=== PATIENT | male | born 1955 | race Hispanic/Latino ===

== ENCOUNTER → 2019-03-31 | Outpatient (CLI) | payer OTHER | END | disposition home or self-care (01) | LOC: SHCH 13:53 | PROVIDERS: ATTEND Internal Medicine Cardiovascular Disease | DX: I10 Essential (primary) hypertension (principal) | CPT/HCPCS: 93306 ==

== ENCOUNTER → 2019-04-06 | Outpatient (CLI) | payer OTHER ==
[~2019-04-06] VITALS: Ht 175.3 cm; Wt 113.4 kg
[~2019-04-06] MED LIST: REGADENOSON 0.4 MG/5 ML PF SYG IVP SCH
== END | disposition home or self-care (01) ==
LOC: SHCH 07:57
PROVIDERS: ATTEND Internal Medicine Cardiovascular Disease
DX: R07.9 Chest pain, unspecified (principal)
CPT/HCPCS: 78452; 93017; 96374; A9500 ×2; J2785

== ENCOUNTER → 2019-05-04 | Outpatient (CLI) | payer OTHER | END | disposition home or self-care (01) | LOC: RAH 14:14 | PROVIDERS: ATTEND Internal Medicine Cardiovascular Disease | DX: Z13.6 Encounter for screening for cardiovascular disorders (principal) | CPT/HCPCS: 75571 ==

== ENCOUNTER 2019-06-02 05:49 | Day surgery (SDC) | payer OTHER ==
[2019-05-31 13:00] VITALS: BP 126/70
[2019-05-31 14:08] LABS: BASOPHILS % (AUTO) 0.6 % (0.0-5.0); LYMPHOCYTES % (AUTO) 15.5 % (21.0-51.0); MEAN CORPUSCULAR HEMOGLOBIN 32.4 pg (27.0-33.0); MEAN CORPUSCULAR VOLUME 95.4 fL (79-99); MONOCYTES % (AUTO) 5.6 % (3.0-13.0); NEUTROPHILS % (AUTO) 76.3 % (40.0-77.0); PLATELET COUNT (AUTO) 202 K/uL (130-400); RED BLOOD CELL COUNT(AUTO) 4.92 MIL/uL (4.50-6.20); RED CELL DISTRIBUTION WIDTH 13.7 % (11.0-15.5); WHITE BLOOD COUNT (AUTO) 7.6 K/uL (4.8-10.8)
[2019-05-31 14:18] LABS: CREATININE 1.1 mg/dL (0.5-1.5); POTASSIUM 4.4 mmol/L (3.5-5.1)
[2019-05-31 14:19] LABS: INR 0.95 (0.85-1.15)
[2019-05-31 14:21] LABS: APPEARANCE,URINE Clear (CLEAR); BILIRUBIN,URINE Negative (NEGATIVE); COLOR,URINE Yellow (YELLOW); GLUCOSE, URINE (UA) 250 mg/dL (NEGATIVE); KETONES,URINE Negative (NEGATIVE); LEUKOCYTE ESTERASE ,URINE Small (NEGATIVE); NITRATE,URINE Negative (NEGATIVE); OCCULT BLOOD,URINE Negative (NEGATIVE); PROTEIN,URINE Negative (NEGATIVE)
[2019-05-31 14:28] LABS: BACTERIA,URINE Rare /HPF (None Seen); MUCUS,URINE Rare LPF (None Seen); RBC,URINE 0-1 /HPF (0-1); SQUAMOUS EPITHELIAL CELL,UR Few /HPF (0-2)
--- NOTE | 2019-06-01 13:25 | NUR ---
report ua results of leukest small and wbc 2-5, no new orders.
[~2019-06-02] VITALS: Ht 175.3 cm; Wt 111.2 kg
[2019-06-02] VITALS (18 sets, daily range): BP systolic 106–173; BP diastolic 65–91
[~2019-06-02 05:49] MED LIST changes: +AEC81 PO; +AMLO1CAP15 PO; +ATOR40TA69 PO; +CLON1TAB12 PO; +IBUP-14 PO; +ISOS10TA8 PO; +MELA3TAB PO; +METO-408 PO; +MULT-1335 PO; +NITR0.4T50 SL; -REGADENOSON 0.4 MG/5 ML PF SYG IVP SCH; +SODIUM CHLORIDE 0.9% 500ML 500 ML IV SCH; +ZOLP10TA6 PO
[2019-06-02] MEDS ORDERED: SODIUM CHLORIDE 0.9% 1000ML 1,000 ML IV ONE (06:18)
[2019-06-02] MEDS ORDERED: ISOS30TA6 PO (06:56)
--- NOTE | 2019-06-02 09:25 | NUR ---
procedure pt taken to labor delivery specialist via bed for procedure. family at bedside
[2019-06-02] MEDS ORDERED: IOHEXOL 350 MG/ML 100ML INFUS..BTL IV ONE (09:37)
[2019-06-02] MEDS ORDERED: LIDOCAINE HCL 2% 20ML ONE (09:37)
[2019-06-02] MEDS ORDERED: SODIUM CHLORIDE 0.9% 1000ML 1,000 ML IV SCH (10:22)
[2019-06-02] MEDS ORDERED: ATROPINE SULFATE 0.1 MG/ML 10 ML SYG IVP ONE (10:27)
[2019-06-02] MEDS ORDERED: ACETAMINOPHEN-CODEINE 300/30MG TAB PO PRN ×2 (10:30)
--- NOTE | 2019-06-02 10:35 | NUR ---
post received pt back from metallurgical lab technician. s/p left heart cath, 6 sinhala sheath to right groin, see post cath assessment. pt awake and alert in bed, no distress noted. plan of care discuss with patient/ family
--- NOTE | 2019-06-02 17:00 | NUR ---
dc dc instructions given to pt's sister , instructed to f/u with dr. vazquez, to continue home meds. right groin d stat dressing dry and intact, site with no bleeding or hematoma noted. vs stable.
--- NOTE | 2019-06-02 17:30 | NUR ---
DISCHARGE PATIENT DISCHARGED HOME WITH SISTER. NO BLEEDING, NO HEMATOMA TO SITE, PULSES ARE PRESENT BILATERAL FEET. PATIENT AND SISTER VERBALIZED UNDERSTANDING OF INSTRUCTIONS.
== END 2019-06-02 17:30 | disposition home or self-care (01) ==
LOC: DAH 05:49
PROVIDERS: ATTEND Internal Medicine Cardiovascular Disease
DX: I25.118 Atherosclerotic heart disease of native coronary artery with other forms of angina pectoris (principal); I10 Essential (primary) hypertension; E78.5 Hyperlipidemia, unspecified; F17.210 Nicotine dependence, cigarettes, uncomplicated; Z88.1 Allergy status to other antibiotic agents; Z79.82 Long term (current) use of aspirin; Z79.899 Other long term (current) drug therapy; Z79.01 Long term (current) use of anticoagulants; Z98.890 Other specified postprocedural states; Z79.1 Long term (current) use of non-steroidal anti-inflammatories (NSAID); Z82.49 Family history of ischemic heart disease and other diseases of the circulatory system
CPT/HCPCS: 36415; 71045; 80048; 81001; 85025; 85610; 85730; 93005; 93458; A4606; C1894; J1644 ×2; J3490; J7030; Q9965; Q9967; J0461

== ENCOUNTER 2019-06-02 23:07 | Observation (INO) | payer OTHER ==
[~2019-06-02] VITALS: Ht 175.3 cm; Wt 111.6 kg
[~2019-06-02 23:07] MED LIST changes: +ISOS30TA6 PO; -SODIUM CHLORIDE 0.9% 500ML 500 ML IV SCH
[2019-06-03 00:18] LABS: BASOPHILS % (AUTO) 0.8 % (0.0-5.0); EOSINOPHILS % (AUTO) 1.1 % (0.0-8.0); HEMATOCRIT 45.3 % (42-54); LYMPHOCYTES % (AUTO) 11.7 % (21.0-51.0); MEAN CORPUSCULAR HEMOGLOBIN 32.5 pg (27.0-33.0); MEAN CORPUSCULAR HGB CONC 34.5 g/dL (32.0-36.0); MEAN CORPUSCULAR VOLUME 94.3 fL (79-99); MONOCYTES % (AUTO) 5.7 % (3.0-13.0); NEUTROPHILS % (AUTO) 80.7 % (40.0-77.0); PLATELET COUNT (AUTO) 194 K/uL (130-400); RED BLOOD CELL COUNT(AUTO) 4.81 MIL/uL (4.50-6.20); RED CELL DISTRIBUTION WIDTH 13.2 % (11.0-15.5); WHITE BLOOD COUNT (AUTO) 8.7 K/uL (4.8-10.8)
[2019-06-03 00:27] LABS: CREATININE 1.2 mg/dL (0.5-1.5); POTASSIUM 4.2 mmol/L (3.5-5.1)
[2019-06-03] MEDS ORDERED: ACETAMINOPHEN 325 MG TAB PO PRN (01:45)
[2019-06-03 05:43] LABS: BASOPHILS % (AUTO) 0.7 % (0.0-5.0); EOSINOPHILS % (AUTO) 1.8 % (0.0-8.0); MEAN CORPUSCULAR HEMOGLOBIN 32.1 pg (27.0-33.0); MEAN CORPUSCULAR HGB CONC 34.1 g/dL (32.0-36.0); MEAN CORPUSCULAR VOLUME 94.1 fL (79-99); MONOCYTES % (AUTO) 6.3 % (3.0-13.0); NEUTROPHILS % (AUTO) 70.2 % (40.0-77.0); NUCLEATED RED BLOOD CELLS 0.1 % (0.0-0.19); PLATELET COUNT (AUTO) 186 K/uL (130-400); RED BLOOD CELL COUNT(AUTO) 4.57 MIL/uL (4.50-6.20); RED CELL DISTRIBUTION WIDTH 13.2 % (11.0-15.5); WHITE BLOOD COUNT (AUTO) 8.5 K/uL (4.8-10.8)
[2019-06-03 05:51] LABS: CREATININE 1.2 mg/dL (0.5-1.5)
[2019-06-03 05:55] LABS: ALBUMIN 3.4 g/dL (3.5-5.0); BILIRUBIN,TOTAL 1.2 mg/dL (0.2-1.0); MAGNESIUM 1.8 mg/dL (1.80-2.40); PHOSPHORUS 3.8 mg/dL (2.5-4.9); TOTAL PROTEIN, SERUM 6.1 g/dL (6.0-8.3)
[2019-06-03] MEDS: MORPHINE SULFATE 2 MG/ML 1ML SYG IVP PRN ×3 (08:42→21:57)
--- NOTE | 2019-06-03 08:50 | NUR ---
PATIENT HAD HEART CATH YESTERDAY AND HAS BRUISING AND PAIN STARTED 06/02/19 EVENING Addendum: 06/03/19 at 1253 by ANTONIO TRAN RN RN Amended: Links added.
[2019-06-03 08:51] VITALS: BP 139/73
[2019-06-03 11:03] VITALS: BP 108/50
[2019-06-03] MEDS ORDERED: IBUPROFEN 200 MG TAB PO PRN (15:15)
[2019-06-03] MEDS ORDERED: NITROGLYCERIN 0.4 MG SL TAB SL PRN (15:15)
[2019-06-03 16:19] VITALS: BP 154/75
--- NOTE | 2019-06-03 16:20 | NUR ---
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
[2019-06-03 19:48] VITALS: BP 157/88
[2019-06-03] MEDS: MELATONIN 3 MG PO SCH (21:00)
[2019-06-03] MEDS: METOPROLOL TARTRATE 25 MG TAB PO SCH (21:53)
[2019-06-03] MEDS: CLONAZEPAM 1 MG TABLET PO SCH (21:53)
[2019-06-03] MEDS: AMLODIPINE-BENAZEPRIL 5-10 MG PO SCH (21:53)
[2019-06-03] MEDS: ZOLPIDEM TARTRATE 5 MG TAB PO SCH (21:53)
[2019-06-03] MEDS: ATORVASTATIN CALCIUM 40 MG TABLET PO SCH (21:53)
[2019-06-04] VITALS (13 sets, daily range): BP systolic 109–154; BP diastolic 64–82
[2019-06-04 07:10] LABS: POTASSIUM 4.1 mmol/L (3.5-5.1)
[2019-06-04 07:14] LABS: HEMATOCRIT 43.6 % (42-54); MEAN CORPUSCULAR HGB CONC 33.8 g/dL (32.0-36.0); MEAN CORPUSCULAR VOLUME 94.6 fL (79-99); PLATELET COUNT (AUTO) 174 K/uL (130-400); RED BLOOD CELL COUNT(AUTO) 4.61 MIL/uL (4.50-6.20); RED CELL DISTRIBUTION WIDTH 13.3 % (11.0-15.5); WHITE BLOOD COUNT (AUTO) 7.8 K/uL (4.8-10.8)
[2019-06-04] MEDS: ISOSORBIDE MONO 30MG TAB SR PO SCH (08:00)
[2019-06-04] MEDS: METOPROLOL TARTRATE 25 MG TAB PO SCH ×2 (09:00→22:28)
[2019-06-04] MEDS: MULTIVITAMIN WITH MINERALS TABLET PO SCH (09:00)
[2019-06-04] MEDS: ASPIRIN 81 MG EC TAB PO SCH (09:00)
[2019-06-04] MEDS ORDERED: THROMBIN-JMI 5000 UNIT/VIAL TP ONE (13:34)
[2019-06-04] MEDS: NYSTATIN 15 GM POWDER TP SCH (13:36)
[2019-06-04] MEDS ORDERED: FENTANYL CITRATE PF 50 MCG/1 ML 2ML VIAL ONE (14:05)
--- NOTE | 2019-06-04 14:57 | NUR ---
RT GROIN PSEUDOANEURYSM REPAIR WITH THROMBIN INJECTION PROCEDURE PERFORMED BY DR Jose M SOUSA. PUNCTURE SITE RT GROIN AND PATIENT TOLERATED PROCEDURE WELL. THROMBIN INJECTION OF 600 UNITS GIVEN AT 1430. END OF PROCEDURE AT 1440. INJECTION NEEDLE REMOVED AND NO BLEEDING NOTED. REPORT GIVEN TO Zay EVANS RN AND PATIENT TRANSPORTED TO [facility] AT 1500 VIA BED. AAO X3 WITH NO C/O PAIN.
--- NOTE | 2019-06-04 17:12 | NUR ---
CM NOTE SPOKE TO DR JACKELYN HENRY THIS PT, STILL IN OBS Addendum: 06/04/19 at 1722 by LORETA HARDY RN CM Amended: Links added.
[2019-06-04] MEDS: MELATONIN 3 MG PO SCH (21:00)
[2019-06-04] MEDS: CLONAZEPAM 1 MG TABLET PO SCH (22:28)
[2019-06-04] MEDS: ATORVASTATIN CALCIUM 40 MG TABLET PO SCH (22:28)
[2019-06-04] MEDS: ZOLPIDEM TARTRATE 5 MG TAB PO SCH (22:28)
[2019-06-04] MEDS: AMLODIPINE-BENAZEPRIL 5-10 MG PO SCH (22:28)
[2019-06-05 03:35] VITALS: BP 118/59
[2019-06-05 08:00] VITALS: BP 130/70
[2019-06-05] MEDS: MULTIVITAMIN WITH MINERALS TABLET PO SCH (09:54)
[2019-06-05] MEDS: METOPROLOL TARTRATE 25 MG TAB PO SCH (09:54)
[2019-06-05] MEDS: ASPIRIN 81 MG EC TAB PO SCH (09:54)
[2019-06-05] MEDS: ISOSORBIDE MONO 30MG TAB SR PO SCH (09:54)
[2019-06-05 12:00] VITALS: BP 94/56
--- NOTE | 2019-06-05 15:45 | NUR ---
DR.BIELFIED SANJIV'S NURSE PAGED, ASKED FOR CLEARANCE SHE STATED THEY DID NOT SEE THE PT BC WHEN THEY ROUNDED PT WAS IN IR IN THE PROCEDURE , SO NO ORDEERS
--- NOTE | 2019-06-05 15:48 | NUR ---
JOIE SLOAN, MADE AWARE OF [facility]'S RESONSES SHE STATED , WE STILL CLEARANCE FROM THEIR PART AND THEY NEED TO SEE PT , TODAY OR TOMORROW
--- NOTE | 2019-06-05 15:50 | NUR ---
CONVEYED JOIE'S PA MESSAGE TO [facility], ALONG WITH US RESULT FROM THIS MORNING SHE STATED "SHIT,.. WELL, WE ARE NOT GOING TO SEE THIS PATIENT, THER IS NO PSEUDOANEURYSM ANYMORE, HE CAN BE CLEARED TO GO HOME" I ASKED IF OK TO PLACED AN ORDER STATED PT WAS CLERED TO GO UNDER BIELFIEDL SHE STATED "YES " "PT CAN BE D/C " JOIE MADE AWARE, STATED "OK THEN PATIENT CAN BE D/C HOME" CHARGE NURSE CINTHIA KOROMA
--- NOTE | 2019-06-05 18:15 | NUR ---
DISCHARGE DISCHARGE TEACHING DONE WITH PATIENT AND SISTERS USING TEACHBACK METHOD, VERBALIZED UNDERSTANDING. NO NOTED SOB OR DISTRESS. NO NEW MEDICATIONS. PT AWARE OF NEED TO SET UP APPOINTMENT WITH DR. FITZPATRICK AND PCP. IV REMOVED, CATH TIP INTACT. TELEPAK REMOVED AND RETURNED. PENDING TO BE TRANSFERRED OUT VIA PRIVATE VEHICLE.
== END 2019-06-05 18:22 | disposition home or self-care (01) ==
LOC: EDH 23:07 → EDHIP 06-03 01:15 → 4BH 06-03 08:19
PROVIDERS: ADMIT Internal Medicine Critical Care Medicine; ATTEND Internal Medicine Critical Care Medicine
DX: I72.8 Aneurysm of other specified arteries (principal); E11.9 Type 2 diabetes mellitus without complications; E66.9 Obesity, unspecified; E78.5 Hyperlipidemia, unspecified; I10 Essential (primary) hypertension; I25.10 Atherosclerotic heart disease of native coronary artery without angina pectoris; R22.41 Localized swelling, mass and lump, right lower limb; F17.200 Nicotine dependence, unspecified, uncomplicated; S30.1XXA Contusion of abdominal wall, initial encounter; Z85.820 Personal history of malignant melanoma of skin; Z90.89 Acquired absence of other organs; X58.XXXA Exposure to other specified factors, initial encounter; Y93.89 Activity, other specified; Y92.89 Other specified places as the place of occurrence of the external cause; Y99.8 Other external cause status; Z88.8 Allergy status to other drugs, medicaments and biological substances; Z79.899 Other long term (current) drug therapy; Z82.49 Family history of ischemic heart disease and other diseases of the circulatory system; Z79.82 Long term (current) use of aspirin
CPT/HCPCS: 36002; 36415 ×2; 74176; 76882 ×2; 76942; 80048; 80053; 83735; 84100; 85025 ×2; 85027; 96374; 96376; 99284; A4215; G0378 ×65; J3010; J3490; 99152; 99153

== ENCOUNTER → 2022-02-07 | Outpatient (CLI) | payer OTHER ==
[~2022-02-07] MED LIST changes: -AMLO1CAP15 PO; +AMLO1CAP88 PO; -ISOS10TA8 PO; -ISOS30TA6 PO; +ISOS30TA92 PO; -MELA3TAB PO; +MELA3TAB41 PO
== END | disposition home or self-care (01) ==
LOC: RAH 09:35
PROVIDERS: ATTEND Internal Medicine Gastroenterology
DX: R13.12 Dysphagia, oropharyngeal phase (principal); R63.30 Feeding difficulties, unspecified
CPT/HCPCS: 74230; 92611

== ENCOUNTER → 2023-03-28 | Outpatient (CLI) | payer OTHER ==
[2023-03-28 15:17] LABS: BASOPHILS % (AUTO) 0.5 % (0.0-5.0); EOSINOPHILS % (AUTO) 2.5 % (0.0-8.0); LYMPHOCYTES % (AUTO) 13.6 % (21.0-51.0); MEAN CORPUSCULAR HEMOGLOBIN 30.8 pg (27.0-33.0); MEAN CORPUSCULAR HGB CONC 32.3 g/dL (32.0-36.0); MEAN CORPUSCULAR VOLUME 95.5 fL (79-99); MONOCYTES % (AUTO) 5.2 % (3.0-13.0); NEUTROPHILS % (AUTO) 77.9 % (40.0-77.0); PLATELET COUNT (AUTO) 257 K/uL (130-400); RED BLOOD CELL COUNT(AUTO) 4.19 MIL/uL (4.50-6.20); RED CELL DISTRIBUTION WIDTH 13.1 % (11.0-15.5); WHITE BLOOD COUNT (AUTO) 7.7 K/uL (4.8-10.8)
== END | disposition home or self-care (01) ==
LOC: LAB 13:50
PROVIDERS: ATTEND Physician Assistant
DX: I10 Essential (primary) hypertension (principal); I25.119 Atherosclerotic heart disease of native coronary artery with unspecified angina pectoris
CPT/HCPCS: 36415; 85025

== ENCOUNTER → 2023-07-23 | Outpatient (CLI) | payer OTHER ==
[2023-07-23 22:47] VITALS: PULSE 68; RESP 14
[2023-07-23 23:31] VITALS: PULSE 76; RESP 18
[2023-07-24] VITALS (12 sets, daily range): PULSE 51–69; RESP 18–20
== END | disposition home or self-care (01) ==
LOC: SLP 20:14
PROVIDERS: ATTEND Internal Medicine Cardiovascular Disease
DX: G47.33 Obstructive sleep apnea (adult) (pediatric) (principal)
CPT/HCPCS: 95810

== ENCOUNTER → 2023-07-28 | Outpatient (CLI) | payer OTHER ==
[2023-07-28] VITALS (7 sets, daily range): PULSE 55–82; RESP 10–25
[2023-07-29] VITALS (16 sets, daily range): PULSE 50–66; RESP 11–24
== END | disposition home or self-care (01) ==
LOC: SLP 20:34
PROVIDERS: ATTEND Internal Medicine Cardiovascular Disease
DX: G47.33 Obstructive sleep apnea (adult) (pediatric) (principal)
CPT/HCPCS: 95811

== ENCOUNTER → 2024-12-23 | Outpatient (CLI) | payer OTHER ==
--- NOTE | 2024-12-23 14:46 | HMCSR ---
APPROVED REPORT Height: 5 ft 9in Weight: 241 lbs TEST INDICATIONS Chest Pain The imaging protocol used to acquire images was Rest Tc-99m/stress Tc-99m 1 day Consent: The procedure was explained and understood by the patient. Informerd consent was witnessed Silvano Mcgowan RN First, low dose rest was performed then high dose stress. RESTING DATA: The resting ekg shows: NSR Rest SPECT myocardial perfusion imaging was performed in supine position 57 minutes following the int ravenous injection of 10.8 mCi of Tc-99 Sestamibi. Time of rest injection: 08:16: Date: 12/23/2024 Time of rest imagin:13: Date: 12/23/2024 PHARMACOLOGIC STRESS: Pharmacologic stress test was performed by injecting regadenoson 0.4 mg IV push followed by the intra venous injection of 32.5 mCi of Tc-99 Sestamibi. Time of stress injection: 09:38: Date: 12/23/2024 Time of stress imagin:43: Date: 12/23/2024 Heart Rate at time of stress injection: 75 bpm. Gated Stress SPECT was performed 65 minutes after stress injection. The images were gated to evaluate regional wall motion and calculate left ventricular ejection fracti on. STRESS DETAILS Reason for Termination: Infusion complete Stress Symptoms: Dyspnea Max HR Achieved: 96 bpm % of APMHR Achieved: 64 Max Blood Pressure: 150/81 mmHg Stress ECG: NSR Study quality was good. Lung uptake was Normal. Artifact: No artifact IMPRESSION Normal pharmacologic nuclear stress test. Conclusion Normal perfusion. LVEF 53%
[2024-12-23] MEDS: REGADENOSON 0.4 MG/5 ML PF SYG IVP ONE (15:32)
== END | disposition home or self-care (01) ==
LOC: SHCH 07:40
PROVIDERS: ATTEND Internal Medicine Cardiovascular Disease
DX: R07.9 Chest pain, unspecified (principal); R06.00 Dyspnea, unspecified
CPT/HCPCS: 78452; 93017; J2785; A9500 ×2

== ENCOUNTER 2025-01-04 15:23 | Inpatient (IN) | payer OTHER ==
[~2025-01-04] VITALS: Ht 167.6 cm; Wt 104.3 kg
[2025-01-04 16:02] LABS: BASOPHILS # (AUTO) 0.05 K/uL (0.00-0.20); EOSINOPHILS # (AUTO) 0.18 K/uL (0.00-0.70); EOSINOPHILS % (AUTO) 3.5 % (0.0-8.0); HEMATOCRIT 41.2 % (42-54); IMMATURE GRANULOCYTE ABSOLUTE 0.02 K/uL (0-1); LYMPHOCYTES # (AUTO) 1.2 K/uL (1.0-4.8); LYMPHOCYTES % (AUTO) 22.5 % (21.0-51.0); MEAN CORPUSCULAR HEMOGLOBIN 31.1 pg (27.0-33.0); MEAN CORPUSCULAR HGB CONC 33.3 g/dL (32.0-36.0); MEAN CORPUSCULAR VOLUME 93.4 fL (79-99); MONOCYTES # (AUTO) 0.3 K/uL (0.1-1.0); NEUTROPHILS # (AUTO) 3.5 K/uL (1.8-7.7); NEUTROPHILS % (AUTO) 66.6 % (40.0-77.0); PLATELET COUNT (AUTO) 229 K/uL (130-400); RED BLOOD CELL COUNT(AUTO) 4.41 MIL/uL (4.50-6.20); RED CELL DISTRIBUTION WIDTH 12.3 % (11.0-15.5); WHITE BLOOD COUNT (AUTO) 5.2 K/uL (4.8-10.8)
[2025-01-04 16:16] LABS: CREATININE 1.7 mg/dL (0.5-1.3); POTASSIUM 4.2 mmol/L (3.5-5.1)
[2025-01-04 16:22] LABS: B-TYPE NATRIURETIC PEPTIDE 43 pg/mL (0-100)
--- NOTE | 2025-01-04 18:16 | ERN ---
ED Note History of Present Illness Stated Complaint: CP Chief Complaint: Chest Pain Time Seen by MD: 15:27 Dictation: 69-year-old male presents to the ED for evaluation of chest pain onset one day ago. Patient denies any fever, cough, abdominal pain or shortness of breath at this time. Patient states his chest pain radiates to his left arm and also stated he had stents placed by Dr. Brooks a year ago and is currently taking baby aspirin. Allergies: Coded Allergies: ceftriaxone (Unverified Allergy, Unknown, 04/05/19) Home Meds Reported Medications Isosorbide Mononitrate (Isosorbide Mononitrate ER) 30 Mg Tab.er.24h, 15 MG PO DAILY AT 1600, TAB 06/02/19 Ibuprofen (Advil) 200 Mg Tablet, 400 MG PO DAILY PRN for PAIN LEVEL 6 TO 10, TAB 05/31/19 Multivit-Min/Folic/Vit K/Lycop (Men's 50 Plus Multivitamin Tab) 1 Each Tablet, 1 EACH PO DAILY, TAB 05/31/19 Melatonin (Melatonin) 3 Mg Tablet, 3 MG PO HS, TAB 05/31/19 Aspirin (ASPIRIN 81 MG ECTAB) 81 Mg Ectab, 81 MG PO DAILY, TAB.EC 05/31/19 Amlodipine Besylate/Benazepril (Lotrel 5-10 mg) 1 Each Capsule, 1 EACH PO HS, CAP 05/31/19 Metoprolol Succinate (Metoprolol Succinate) 25 Mg Tab.er.24h, 25 MG PO DAILY, TAB 05/31/19 Nitroglycerin (Nitroglycerin) 0.4 Mg Tab.subl, 0.4 MG SL AD PRN for CHEST PAIN, TAB.SL 05/31/19 Zolpidem Tartrate (Zolpidem Tartrate) 10 Mg Tablet, 10 MG PO HS, TAB 05/31/19 Clonazepam (Clonazepam) 1 Mg Tablet, 1 MG PO HS, TAB 05/31/19 Atorvastatin Calcium (LIPITOR) 40 Mg Tablet, 40 MG PO HS, TAB 05/31/19 Past Medical History Past Medical History: Cancer, Hypertension Surgical History: Appendectomy, Other Surgical History Other: STENTS Review of System Dictation Constitutional: Negative for fever,chills, and weight loss Eyes: Negative for injury, pain,redness, and discharge ENT: Negative for injury,pain or swelling Cardiovascular: Positive for chest pain negative for palpitations, and edema Respiratory: Negative for shortness of breath, cough, and wheezing, Abdomen/GI: Negative for abdominal pain, nausea, vomiting, diarrhea, and constipation Back: Negative for injury and pain : Negative for injury, bleeding and discharge MS/Extremity: Negative for injury and deformity Skin: Negative for rash, and discoloration Neuro: Negative for headache, weakness, numbness, tingling, and seizure Psych: Negative for suicide ideation, homicidal ideation, and hallucinations Initial Vital Sign VS Vital Signs Date Time Temp Pulse Resp B/P (MAP) Pulse Ox O2 Delivery O2 Flow Rate FiO2 01/04/25 15:25 98.4 67 20 147/69 98 Room Air 0 Physical Exam Dictation General: awake, alert, NAD Head/Face: Normocephalic, atraumatic Eyes: PERRL, EOMI, vision at baseline ENT: oral cavity clear, TMs clear, no signs of infection Neck: Trachea midline, supple, no nuchal rigidity Cardiovascular: RRR, normal S1/S2, No MRGs, no JVD Respiratory: CTAB, no respiratory distress, No rales or wheezes Abdomen: Soft, non-tender, non-distended, normal bowel sounds, no guarding or rebound. Skin: Warm, dry, normal turgor, no rash MS/Extremity: Pulses equal, no cyanosis, neurovascular intact, FROM Neuro: COAx4, GCS 15, strength 5/5, CN 2-12 intact, normal cerebellar exam, normal gait, Psych: Normal behavior, mood, and affect normal Results (Laboratory/Radiology) Laboratory/Radiology Laboratory Tests Test 01/04/25 15:50 01/04/25 16:07 White Blood Count 5.2 K/uL (4.8-10.8) Red Blood Count 4.41 MIL/uL (4.50-6.20) L Hemoglobin 13.7 g/dL (14.0-18.0) L Hematocrit 41.2 % (42-54) L Mean Corpuscular Volume 93.4 fL (79-99) Mean Corpuscular Hemoglobin 31.1 pg (27.0-33.0) Mean Corpuscular Hemoglobin Concent 33.3 g/dL (32.0-36.0) Red Cell Distribution Width 12.3 % (11.0-15.5) Platelet Count 229 K/uL (130-400) Mean Platelet Volume 9.3 fL (7.5-10.5) Immature Granulocyte % (Auto) 0.4 % (0-1) Neutrophils (%) (Auto) 66.6 % (40.0-77.0) Lymphocytes (%) (Auto) 22.5 % (21.0-51.0) Monocytes (%) (Auto) 6.0 % (3.0-13.0) Eosinophils (%) (Auto) 3.5 % (0.0-8.0) Basophils (%) (Auto) 1.0 % (0.0-5.0) Neutrophils # (Auto) 3.5 K/uL (1.8-7.7) Lymphocytes # (Auto) 1.2 K/uL (1.0-4.8) Monocytes # (Auto) 0.3 K/uL (0.1-1.0) Eosinophils # (Auto) 0.18 K/uL (0.00-0.70) Basophils # (Auto) 0.05 K/uL (0.00-0.20) Absolute Immature Granulocyte (auto 0.02 K/uL (0-1) Nucleated Red Blood Cells 0.0 % (0.0-0.19) Sodium Level 137 mmol/L (136-145) Potassium Level 4.2 mmol/L (3.5-5.1) Chloride Level 104 mmol/L (101-111) Carbon Dioxide Level 32 mmol/L (21-32) Blood Urea Nitrogen 23 mg/dL (7-18) H Creatinine 1.7 mg/dL (0.5-1.3) H Glomerular Filtration Rate Calc 43 mL/min (>90) Random Glucose 129 mg/dL (70-105) H Total Calcium 8.7 mg/dL (8.5-10.1) Total Creatine Kinase 41 U/L (21-232) Troponin I High Sensitivity 9.9 ng/L (4-75) B-Type Natriuretic Peptide 43 pg/mL (0-100) Troponin I < 0.05 ng/mL (0.00-0.05) Labs Reviewed?: Yes EKG Comment: EKG 01/04/2025 time 3:30 p.m. ventricular rate 62, IL 188, QRS D 95, QT 404 sinus rhythm, low voltage precordial leads. No STEMI ED Course ED Course Orders Procedure Category Date Status Time Vital Signs Per CPOE 01/04/25 Transmitted Routine 15:24 B-Type Natriuretic LAB 01/04/25 Complete Peptide 15:24 Chest 1vw RAD 01/04/25 Taken 15:24 12 Lead Ekg Tracing- EKG 01/04/25 Logged Technical 15:24 Oxygen By Nc/Pulse Ox CPOE 01/04/25 Transmitted 15:24 Maintain Iv CPOE 01/04/25 Transmitted 15:24 Iv Insertion CPOE 01/04/25 Transmitted 15:24 Cardiac Monitoring CPOE 01/04/25 Transmitted 15:24 Pulse Oximetry With CPOE 01/04/25 Transmitted Vs And Prn 15:24 Cbc With Differential LAB 01/04/25 Complete 15:24 Activity: Br W/Brp CPOE 01/04/25 Transmitted With Assist 15:24 Urinalysis Profile LAB 01/04/25 Logged 15:24 Troponin Poc Order LAB 01/04/25 Complete Only 15:24 Bedside Troponin-I LAB.ER 01/04/25 In Process (Poc) 15:24 Basic Metabolic Panel LAB 01/04/25 Complete 15:24 Cardiac Panel LAB 01/04/25 Complete 15:24 Vital Signs Date Time Temp Pulse Resp B/P (MAP) Pulse Ox O2 Delivery O2 Flow Rate FiO2 01/04/25 15:25 98.4 67 20 147/69 98 Room Air 0 HEART Score Response (Comments) Value History: Moderate suspicion (+1) 1 EKG: Normal 0 Age: > 65yrs (+2) 2 Risk Factors: 1-2 risk factors (+1) 1 Initial Troponin: Normal limit (0) 0 HEART Score Risk: Mod Risk for MACE (4-6) Total 4 Medical Decision Making MDM MDM: Differential diagnosis: Chest pain, unstable angina 1846-Hospitalist consult, accepts patient for admission Rationale: Tests considered and ordered secondary to shared decision making include: labs, ECG and radiology Risk of complication and/or morbidity or mortality of patient management: None Medications-Per medication reconciliation Need for hospitalization: Patient does meet criteria for hospitalization. Need for emergency major/minor surgery: No There are no social concerns with this patient. I independently interpreted the test that were performed, results were reviewed by me and considered findings on radiology if ordered. Medical management and examination interpretation discussions were had by me with other qualified healthcare professionals as indicated for the patient's care. DX & DISP Disposition: Inpatient Decision to Admit Date: Jan 04, 2025 Decision to Admit Time: 18:47 Departure Impression: Primary Impression: Unstable angina Condition: Stable Referrals: JANI ALMARAZ (PCP) CHAYA JUNG MD Jan 04, 2025 18:16
--- NOTE | 2025-01-04 19:05 | HP ---
History of Present Illness Reason for Visit: cp History of Present Illness Mr. House is a 69-year-old male that was seen and examined today on 01/05/2025. Patient is a good historian of personal health Patient states he came to the emergency department with a chief complaint of chest pain. Onset was two days ago. Location is to left pectoral area. Duration is on and off. Episodes last about 1 hour. Patient reports three episodes over the last two days. Character is described as pressure. Pain radiates to left shoulder. Symptoms are aggravated with eating. There was no alleviating factors. Patient denies any associated shortness of breath. Patient states he went to go see his PCP but somebody walked out into the lobby and told him he needs to go to the emergency department for evaluation because he stated he was having chest pain. Today in the emergency department vital signs within normal limits, CBC unremarkable, BUN 23, creatinine 1.7, GFR 43, troponin unremarkable, no urinalysis has been collected and sent to lab. Chest x-ray is pending radiology report. Emergency room physician recommended that patient be admitted with a diagnosis of chest pain. Past Medical History Patient History: Alzheimer's disease FATHER Carcinomas FATHER Cardiovascular disease BROTHER Hypertension MOTHER, , Age: 60 years and older, Cause: Coronary heart disease FATHER ADDITIONAL PAST MEDICAL HISTORY: [CAD, hypertension, hyperlipidemia, kidney CA] SOCIAL HISTORY: [Patient smokes four cigarettes daily. Patient denies alcohol use. Patient denies drug use. Patient lives alone. Patient has good access to health care through his insurance. 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 Dyspnea, Edema, Lt Headedness, Other Gastrointestinal: No: Nausea, Vomiting, Abdominal Pain, Diarrhea, Constipation, Melena, Hematochezia, Other Genitourinary: No Dysuria, No Frequency, No Incontinence, No Hematuria, No Retention, No Other Musculoskeletal: shoulder pain; No: other, neck pain, arm pain, back pain, hand pain, leg pain, foot pain Skin: No Urticaria, No Rash, No Other Neurological: No: Weakness, Numbness, Incoordination, Change in speech, Confusion, Seizures, Other Allergies: Coded Allergies: ceftriaxone (Unverified Allergy, Unknown, 04/05/19) Scheduled Amlodipine Besylate/Benazepril (Lotrel 5-10 mg), 1 EACH PO HS, (Reported) Ascorbic Acid (Vitamin C), 1 TAB PO DAILY, (Reported) Aspirin (Aspirin 81 Mg Ectab), 81 MG PO DAILY, (Reported) Aspirin (Aspirin), 1 TAB PO DAILY, (Reported) Atorvastatin Calcium (Lipitor), 40 MG PO HS, (Reported) Cholecalciferol (Vitamin D3) (Vitamin D3), 1 CAP PO DAILY, (Reported) Clonazepam (Clonazepam), 1 MG PO HS, (Reported) Clonazepam (Clonazepam), 1 TAB PO DAILY, (Reported) Clopidogrel Bisulfate (Clopidogrel), 1 TAB PO DAILY, (Reported) Colchicine (Colchicine), 1 TAB PO BID, (Reported) Ezetimibe (Ezetimibe), 1 TAB PO DAILY, (Reported) Fenofibrate Nanocrystallized (Fenofibrate), 1 TAB PO DAILY, (Reported) Furosemide (Furosemide), 1 TAB PO BID, (Reported) Isosorbide Mononitrate (Isosorbide Mononitrate ER), 15 MG PO DAILY AT 1600, (Reported) Melatonin (Melatonin), 3 MG PO HS, (Reported) Metoprolol Succinate (Metoprolol Succinate), 25 MG PO DAILY, (Reported) Metoprolol Succinate (Metoprolol Succinate), 1 TAB PO DAILY, (Reported) Multivit-Min/Folic/Vit K/Lycop (Men's 50 Plus Multivitamin Tab), 1 EACH PO DAILY, (Reported) Nifedipine (Nifedipine ER), 1 TAB PO DAILY, (Reported) Oseltamivir Phosphate (Oseltamivir Phosphate), 1 CAP PO BID, (Reported) Tamsulosin HCl (Flomax), 1 CAP PO DAILY, (Reported) Trazodone HCl (Trazodone HCl), 1 TAB PO HS, (Reported) Zolpidem Tartrate (Zolpidem Tartrate), 10 MG PO HS, (Reported) Scheduled PRN Ibuprofen (Advil), 400 MG PO DAILY PRN for PAIN LEVEL 6 TO 10, (Reported) Nitroglycerin (Nitroglycerin), 0.4 MG SL AD PRN for CHEST PAIN, (Reported) Exam Vital Signs Vital Signs Date Time Temp Pulse Resp B/P (MAP) Pulse Ox O2 Delivery O2 Flow Rate FiO2 01/04/25 15:25 98.4 67 20 147/69 98 Room Air 0 General Appearance: Alert, Oriented X3, Cooperative HEENT: Atraumatic, EOMI Respiratory: Clear to auscultation, Normal air movement, NL respiratory effort Cardiovascular: Regular rate, Regular rhythm, Normal S1, Normal S2 Abdominal: Normal bowel sounds, Soft, No tenderness Extremities: No edema Skin: No significant lesion Neuro: Normal gait, Normal speech, Strength at 5/5 X4 ext, Sensation intact, Cranial nerves 3-12 NL Psych/Mental Status: Mental status NL, Mood NL, Thoughts/Content NL Assessment/Plan ASSESSMENT: [ Chest pain, POA Acute kidney injury, POA CAD Hypertension Hyperlipidemia History of kidney CA] PLAN: [ Admit patient to medical floor as inpatient status. Place patient on telemetry monitoring. Administer aspirin 162 mg by mouth times 1 dose Continue aspirin 81 mg by mouth once daily Nitropaste 0.5 inches anterior chest wall every 8 hours Trend troponin every 6 hours x 3 sets Supplemental oxygen to maintain O2 saturation greater than 92% Consult cardiology if any elevation in troponin or troponin uptrending Calculate FENA Check urine sodium, creatinine, osmolality Avoid nephrotoxic agents when possible Renally dose all medications when possible Consider consulting Nephrology service if any worsening renal function or evidence of ATN. Monitor patient's labs. Weight patient daily. Monitor intake and output. Consider resuming home medications once they are reconciled For now, Hydralazine 10 mg IV every 4 hours for systolic blood pressure greater than 160 mmHg GI prophylaxis, Protonix DVT prophylaxis, heparin ADVANCED CARE PLANNING 1. Which of the following were discussed? Hospice Care - Yes Therapeutic options - Yes Advance Directives - Yes- patient states that he does not have any advance directives in place at this time, however his friend Carina Cee Osborne can make decisions for him if he becomes unable. Other discussions - patient wishes to remain a full code at this time 2. Discussed with who? Patient 3. Voluntary nature of this service was explained to the patient? Yes 4. Amount of time spent - ___ 16 minutes ____ 5. Reviewed by Physician? (if this service was performed by NPP) Yes This document was generated in part using voice recognition software, occasional wrong word or sound alike substitutions may have occurred due to the inherent limitations of voice recognition software. Read the chart carefully and recognize using context, where the substitutions have occurred. Although every effort was made to edit the content, chute tender and typing errors may occur ATTESTATION BY PHYSICIAN I have seen and examined the patient. I reviewed the documentation, medical decision making, and treatment plan as noted by the mid-level provider above. I agree with the findings and plan of care. LUISA WILSON [facility] Jan 04, 2025 19:05
[2025-01-04] MEDS ORDERED: hydrALAZine 20MG/ML VIAL IV PRN (20:00)
[2025-01-04] MEDS ORDERED: ondanSETRON 4MG INJ IV PRN (20:00)
[2025-01-04] MEDS: NITROGLYCERIN 1GM OINT 1 INCH/1GM TD SCH (21:17)
[2025-01-04] MEDS: ASPIRIN 81MG CHEW TAB PO ONE (21:17)
[2025-01-04] MEDS: HEParin 5,000 UNIT VIAL SQ SCH (21:17)
[2025-01-04] MEDS: morPHINE 2 MG SYG IVP PRN (23:37)
[2025-01-05] MEDS ORDERED: NIFE-39 PO (00:06)
[2025-01-05] MEDS ORDERED: EZET10TA48 PO (00:06)
[2025-01-05] MEDS ORDERED: CLOP75TA32 PO (00:06)
[2025-01-05] MEDS ORDERED: TRAZ-185 PO (00:06)
[2025-01-05] MEDS ORDERED: ASCO100031 PO (00:06)
[2025-01-05] MEDS ORDERED: FURO20TA4 PO (00:06)
[2025-01-05] MEDS ORDERED: CLON1TAB23 PO (00:06)
[2025-01-05] MEDS ORDERED: ASPI-1197 PO (00:06)
[2025-01-05] MEDS ORDERED: TAMS-1 PO (00:06)
[2025-01-05] MEDS ORDERED: METO-391 PO (00:06)
[2025-01-05] MEDS ORDERED: CHOL2000 PO (00:06)
[2025-01-05] MEDS ORDERED: OSEL75CA17 PO (00:06)
[2025-01-05] MEDS ORDERED: COLC0.6T73 PO (00:06)
[2025-01-05] MEDS ORDERED: FENO145T26 PO (00:06)
[2025-01-05 00:48] LABS: APPEARANCE,URINE CLEAR (CLEAR); BILIRUBIN,URINE NEGATIVE (NEGATIVE); COLOR,URINE LIGHT-YELLOW (YELLOW); GLUCOSE, URINE (UA) NEGATIVE (NEGATIVE); KETONES,URINE NEGATIVE (NEGATIVE); LEUKOCYTE ESTERASE ,URINE NEGATIVE Leu/uL (NEGATIVE); NITRATE,URINE NEGATIVE (NEGATIVE); OCCULT BLOOD,URINE NEGATIVE (NEGATIVE); PH,URINE 6.5 (5.0-8.0); PROTEIN,URINE NEGATIVE (NEGATIVE); UROBILINOGEN,URINE 0.2 mg/dL (0.2-1.0)
[2025-01-05 00:53] LABS: ADD UA MICROSCOPIC NO
[2025-01-05 01:29] LABS: CREATININE,URINE RANDOM 114.15 mg/dL (30-135); SODIUM,URINE RANDOM 123 mmol/l (40-220)
[2025-01-05 06:54] LABS: BASOPHILS # (AUTO) 0.04 K/uL (0.00-0.20); BASOPHILS % (AUTO) 0.7 % (0.0-5.0); EOSINOPHILS # (AUTO) 0.27 K/uL (0.00-0.70); EOSINOPHILS % (AUTO) 4.7 % (0.0-8.0); HEMATOCRIT 43.5 % (42-54); IMMATURE GRANULOCYTE ABSOLUTE 0.02 K/uL (0-1); LYMPHOCYTES % (AUTO) 34.5 % (21.0-51.0); MEAN CORPUSCULAR HEMOGLOBIN 30.7 pg (27.0-33.0); MEAN CORPUSCULAR HGB CONC 32.9 g/dL (32.0-36.0); MEAN CORPUSCULAR VOLUME 93.3 fL (79-99); MONOCYTES # (AUTO) 0.3 K/uL (0.1-1.0); NEUTROPHILS # (AUTO) 3.2 K/uL (1.8-7.7); NEUTROPHILS % (AUTO) 54.8 % (40.0-77.0); PLATELET COUNT (AUTO) 248 K/uL (130-400); RED BLOOD CELL COUNT(AUTO) 4.66 MIL/uL (4.50-6.20); RED CELL DISTRIBUTION WIDTH 12.2 % (11.0-15.5); WHITE BLOOD COUNT (AUTO) 5.8 K/uL (4.8-10.8)
--- NOTE | 2025-01-05 07:00 | NUR ---
REPORT RECEIVCD FROM ERICH BARBOSA
--- NOTE | 2025-01-05 07:01 | EKG ---
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
[2025-01-05 07:05] LABS: CREATININE 1.5 mg/dL (0.5-1.3); PHOSPHORUS 3.1 mg/dL (2.5-4.9); POTASSIUM 4.3 mmol/L (3.5-5.1)
--- NOTE | 2025-01-05 08:00 | NUR ---
ASSESSMENT: PT FOUND IN SITTING POSITION EATING HIS AM MEAL TRAY. NO ACUTE DISTRESS NOTED. PT DID VERBALIZE THAT HE STILL HAD SOME DISCOMFORT TO HIS L CHEST WALL-ESPECIALLY TO PALPATION. CARDIO/PULMONARY: PT STATES HE HAS SOME CHEST WALL DISCOMFORT-ESPECIALLY TO PALPATION TO L SIDE CHEST. PT HAS SINUS RHYTHM ON COILER. 1+PITTING EDEMA TO LLE AND TRACE EDEMA TO RLE. 2+ PULSES TO BILATERAL RADIAL/DORSALIS PEDAL SITES. S1S2 AUSCULTATED APICALLY. LSCTA TO ALL LUNG COLON. NO CYANOSIS NOTED TO NAIL BEDS. CAP REFILL LESS THAN 3 SECONDS. NO USE OF ACCESSORY MUSCLES. SATS >94% ROOM AIR. NEURO: PT IS NEUROLOGICALLY INTACT. PT FOLLOWS COMMANDS BOTH SIMPLE AND COMPLEX. GCS OF 15. DENIES BLURRED OR DOUBLE VISION MUSCULOSKELETAL/INTEGUMENTARY: PT IS ABLE TO MOVE ALL EXTREMITIES W/NO COMPLAINTS AT THIS TIME EXCEPT TO THE LEFT CHEST WALL W/PALPATION. NO SKIN LESIONS NOTED NOR VERBALIZED BY PT. GI/: PT ABLE TO VOID VIA URINAL WHICH IS AT BEDSIDE AND HAS CLEAR YELLOW URINE IN IT CURRENTYL. NO BLADDER DISTENTION NOTED. +BS X 4 QUADRANTS. SOFT ABD TO PALPATION. PT DENIES N/V/D. PT HAS NOT HAD A STOOL FOR THE LAST 2 DAYS.
--- NOTE | 2025-01-05 08:27 | HMCIMG ---
CHEST 1VW REASON: CHEST PAIN COMPARISON: 05/31/2019 FINDINGS: Single view of the chest was obtained. Lungs are clear. Heart size is normal. There is no pulmonary vascular congestion. Elevated right hemidiaphragm is again noted. Mediastinum and bony thorax appear unremarkable. IMPRESSION: 1. No acute finding, no change.
--- NOTE | 2025-01-05 08:30 | NUR ---
PT ATE 100% OF HIS AM TRAY
--- NOTE | 2025-01-05 09:30 | NUR ---
PT ASSISTED OOB TO BR TO HAVE A STOOL. DENIES ANY ISSUES/CONCERNS
[2025-01-05] MEDS: PANTOPrazole 40 MG TAB DR PO SCH (10:15)
[2025-01-05] MEDS: ASPIRIN 81 MG EC TAB PO SCH (10:15)
[2025-01-05] MEDS: acetaMINOPHEN 325 MG TAB PO PRN (10:16)
--- NOTE | 2025-01-05 12:15 | NUR ---
PT PROVIDED HIS NOON MEAL TRAY
--- NOTE | 2025-01-05 12:19 | NUR ---
DCP: HOME met with pt who lives alone in his home. Pt states he is active and drives, able to complete his ADLS on his own. Uses no DME or in home care services. PCP is Maryam Saravia and uses [facility] for rx. Discussed MPOA, pt states he is not close to his family, brother Leland House [phone]. Pt wants to have friend Kahlil Osborne [phone], but needs to speak to him first and get address. Pt to recontact if he decides to complete. Pt will dc home Addendum: 01/05/25 at 1225 by TOD ARCHIBALD Amended: Links added.
--- NOTE | 2025-01-05 12:45 | NUR ---
HOSPITALIST GROUP IN TO SEE THE PT.
--- NOTE | 2025-01-05 13:13 | DS ---
Discharge Summary Hospital Course Summary: Mr. Sofia is a 69-year-old male who came to the emergency department with a chief complaint of intermittent chest pain around the left pectoral area , radiating to shoulder since two days, . Character is described as pressure Symptoms are aggravated with eating. There was no alleviating factors. Patient denies any associated shortness of breath. Patient states he went to go see his PCP but somebody walked out into the lobby and told him he needs to go to the emergency department for evaluation because he stated he was having chest pain. In the emergency department vital signs within normal limits, CBC unremarkable, BUN 23, creatinine 1.7, GFR 43, troponin unremarkable, urinalysis was unremarkable. No acute findings on chest x-ray. He has a history of multiple cardiac stents done by Dr. Brooks few years ago. EKG showed sinus rhythm. He had a history of renal mass and left nephrectomy 5 years ago. 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 [facility] normal perfusion. LVEF 53%. He follows up with Dr. Antonio Brooks and has an appointment in next week. Currently he has no chest pain, denies any radiation or aggravating factors, denies shortness of breath or dizziness or palpitations or diaphoresis. We will discharge him today to follow up with PCP and Dr. Brooks. Will prescribe him nicotine patch for smoking cessation and pantoprazole for GERD. Procedure(s): PATIENT: [place] SOFIA MR#: [id number] : 1955 SEX: M AGE: 69 LOCATION: [facility] ORDER 1525 STATUS: ADM IN REPORT#: [id number] SERVICE 1524 REASON: CHEST PAIN ORDERING PHYSICIAN: CHAYA JUNG MD PROCEDURE: CXR1VW - CHEST 1VW CHEST 1VW REASON: CHEST PAIN COMPARISON: 05/31/2019 FINDINGS: Single view of the chest was obtained. Lungs are clear. Heart size is normal. There is no pulmonary vascular congestion. Elevated right hemidiaphragm is again noted. Mediastinum and bony thorax appear unremarkable. IMPRESSION: 1. No acute finding, no change. 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 FOLLOW UP APPOINTMENT(S) : f/u with PCP in one 2-3 days PROCEDURES: none IMAGING (S) : report attached to summary MICROBIOLOGY : none ACTIVITY : ad jose eduardo HOME MEDICATIONS : Continued Home Medications: Active Scripts Pantoprazole Sodium (Pantoprazole Sodium) 40 Mg Tablet.dr, 1 TAB PO DAILY for 30 Days, #30 TAB 0 Refills Prov:JEANETTE HELTON MD 01/05/25 Acetaminophen (Tylenol Extra Strength) 500 Mg Tablet, 1 TAB PO TIDP PRN for pain or fever for 3 Days, #10 TAB 0 Refills Prov:JEANETTE HELTON MD 01/05/25 Nicotine (Nicotine Patch) 14 Mg/24 Hour Patch.td24, 1 PATCH TP DAILY for smoking cessation for 28 Days, #28 PATCH 0 Refills Prov:JEANETTE HELTON MD 01/05/25 Reported Medications Colchicine (Colchicine) 0.6 Mg Tablet, 1 TAB PO BID for gout pain for 30 Days, #60 TAB 0 Refills 01/05/25 Aspirin (Aspirin) 81 Mg Tab.chew, 1 TAB PO DAILY for 30 Days, #30 TAB 0 Refills 01/05/25 Furosemide (Furosemide) 20 Mg Tablet, 1 TAB PO BID for 30 Days, #30 TAB 0 Refills 01/05/25 Clopidogrel Bisulfate (Clopidogrel) 75 Mg Tablet, 1 TAB PO DAILY for 30 Days, #30 TAB 0 Refills 01/05/25 Metoprolol Succinate (Metoprolol Succinate) 50 Mg Tab.er.24h, 1 TAB PO DAILY for 30 Days, #30 TAB 0 Refills 01/05/25 Ezetimibe (Ezetimibe) 10 Mg Tablet, 1 TAB PO DAILY for 30 Days, #30 TAB 0 Refills 01/05/25 Trazodone HCl (Trazodone HCl) 50 Mg Tablet, 1 TAB PO HS for 30 Days, #30 TAB 0 Refills 01/05/25 Ascorbic Acid (Vitamin C) 1,000 Mg Tablet, 1 TAB PO DAILY for 15 Days, #15 TAB 0 Refills DIRECTED 01/05/25 Tamsulosin HCl (Flomax) 0.4 Mg Cap.er.24h, 1 CAP PO DAILY for 30 Days, #30 CAP 0 Refills 01/05/25 Oseltamivir Phosphate (Oseltamivir Phosphate) 75 Mg Capsule, 1 CAP PO BID for 5 Days, #10 CAP 0 Refills 01/05/25 Clonazepam (Clonazepam) 1 Mg Tab.rapdis, 1 TAB PO DAILY for 30 Days, #30 TAB 0 Refills 01/05/25 Fenofibrate Nanocrystallized (Fenofibrate) 145 Mg Tablet, 1 TAB PO DAILY for 30 Days, #30 TAB 0 Refills 01/05/25 Cholecalciferol (Vitamin D3) (Vitamin D3) 50 Mcg (2000 Unit) Capsule, 1 CAP PO DAILY for 30 Days, #30 CAP 0 Refills 01/05/25 Nifedipine (Nifedipine ER) 60 Mg Tab.er.24, 1 TAB PO DAILY for 30 Days, #30 TAB 0 Refills 01/05/25 Isosorbide Mononitrate (Isosorbide Mononitrate ER) 30 Mg Tab.er.24h, 15 MG PO DAILY AT 1600, TAB 06/02/19 Ibuprofen (Advil) 200 Mg Tablet, 400 MG PO DAILY PRN for PAIN LEVEL 6 TO 10, TAB 05/31/19 Multivit-Min/Folic/Vit K/Lycop (Men's 50 Plus Multivitamin Tab) 1 Each Tablet, 1 EACH PO DAILY, TAB 05/31/19 Melatonin (Melatonin) 3 Mg Tablet, 3 MG PO HS, TAB 05/31/19 Aspirin (ASPIRIN 81 MG ECTAB) 81 Mg Ectab, 81 MG PO DAILY, TAB.EC 05/31/19 Amlodipine Besylate/Benazepril (Lotrel 5-10 mg) 1 Each Capsule, 1 EACH PO HS, CAP 05/31/19 Metoprolol Succinate (Metoprolol Succinate) 25 Mg Tab.er.24h, 25 MG PO DAILY, TAB 05/31/19 Nitroglycerin (Nitroglycerin) 0.4 Mg Tab.subl, 0.4 MG SL AD PRN for CHEST PAIN, TAB.SL 05/31/19 Zolpidem Tartrate (Zolpidem Tartrate) 10 Mg Tablet, 10 MG PO HS, TAB 05/31/19 Clonazepam (Clonazepam) 1 Mg Tablet, 1 MG PO HS, TAB 05/31/19 Atorvastatin Calcium (LIPITOR) 40 Mg Tablet, 40 MG PO HS, TAB 05/31/19 New Medications: Acetaminophen (Tylenol Extra Strength) 500 Mg Tablet 1 TAB PO TIDP PRN for pain or fever for 3 Days, #10 TAB 0 Refills Nicotine (Nicotine Patch) 14 Mg/24 Hour Patch.td24 1 PATCH TP DAILY for smoking cessation for 28 Days, #28 PATCH 0 Refills Continued Medications: Amlodipine Besylate/Benazepril (Lotrel 5-10 mg) 1 Each Capsule 1 EACH PO HS, CAP Ascorbic Acid (Vitamin C) 1,000 Mg Tablet 1 TAB PO DAILY for 15 Days, #15 TAB 0 Refills DIRECTED Aspirin (Aspirin 81 Mg Ectab) 81 Mg Ectab 81 MG PO DAILY, TAB.EC Aspirin (Aspirin) 81 Mg Tab.chew 1 TAB PO DAILY for 30 Days, #30 TAB 0 Refills Atorvastatin Calcium (Lipitor) 40 Mg Tablet 40 MG PO HS, TAB Cholecalciferol (Vitamin D3) (Vitamin D3) 50 Mcg (2000 Unit) Capsule 1 CAP PO DAILY for 30 Days, #30 CAP 0 Refills Clonazepam (Clonazepam) 1 Mg Tablet 1 MG PO HS, TAB Clonazepam (Clonazepam) 1 Mg Tab.rapdis 1 TAB PO DAILY for 30 Days, #30 TAB 0 Refills Clopidogrel Bisulfate (Clopidogrel) 75 Mg Tablet 1 TAB PO DAILY for 30 Days, #30 TAB 0 Refills Colchicine (Colchicine) 0.6 Mg Tablet 1 TAB PO BID for gout pain for 30 Days, #60 TAB 0 Refills Ezetimibe (Ezetimibe) 10 Mg Tablet 1 TAB PO DAILY for 30 Days, #30 TAB 0 Refills Fenofibrate Nanocrystallized (Fenofibrate) 145 Mg Tablet 1 TAB PO DAILY for 30 Days, #30 TAB 0 Refills Furosemide (Furosemide) 20 Mg Tablet 1 TAB PO BID for 30 Days, #30 TAB 0 Refills Ibuprofen (Advil) 200 Mg Tablet 400 MG PO DAILY PRN for PAIN LEVEL 6 TO 10, TAB Isosorbide Mononitrate (Isosorbide Mononitrate ER) 30 Mg Tab.er.24h 15 MG PO DAILY AT 1600, TAB Melatonin (Melatonin) 3 Mg Tablet 3 MG PO HS, TAB Metoprolol Succinate (Metoprolol Succinate) 25 Mg Tab.er.24h 25 MG PO DAILY, TAB Metoprolol Succinate (Metoprolol Succinate) 50 Mg Tab.er.24h 1 TAB PO DAILY for 30 Days, #30 TAB 0 Refills Multivit-Min/Folic/Vit K/Lycop (Men's 50 Plus Multivitamin Tab) 1 Each Tablet 1 EACH PO DAILY, TAB Nifedipine (Nifedipine ER) 60 Mg Tab.er.24 1 TAB PO DAILY for 30 Days, #30 TAB 0 Refills Nitroglycerin (Nitroglycerin) 0.4 Mg Tab.subl 0.4 MG SL AD PRN for CHEST PAIN, TAB.SL Oseltamivir Phosphate (Oseltamivir Phosphate) 75 Mg Capsule 1 CAP PO BID for 5 Days, #10 CAP 0 Refills Tamsulosin HCl (Flomax) 0.4 Mg Cap.er.24h 1 CAP PO DAILY for 30 Days, #30 CAP 0 Refills Trazodone HCl (Trazodone HCl) 50 Mg Tablet 1 TAB PO HS for 30 Days, #30 TAB 0 Refills Zolpidem Tartrate (Zolpidem Tartrate) 10 Mg Tablet 10 MG PO HS, TAB Time spent arranging discharge: 1-30 minutes ATTESTATION BY PHYSICIAN I have seen and examined the patient. I reviewed the documentation, medical decision making, and treatment plan as noted by the resident provider above. I agree with the findings and plan of care. Marcos Calvillo MD, NIHITHA MD Jan 05, 2025 13:13
[2025-01-05] MEDS ORDERED: ACET-2743 PO (13:17)
[2025-01-05] MEDS ORDERED: NICO-704 TP (13:17)
[2025-01-05] MEDS ORDERED: PANT40TA54 PO (13:58)
--- NOTE | 2025-01-05 14:38 | NUR ---
PT AWARE HE IS PENDING D/C TO HOME
--- NOTE | 2025-01-05 15:09 | NUR ---
18G SALINE LOCK REMOVED FROM HIS R LATERAL AC
--- NOTE | 2025-01-05 15:10 | NUR ---
D/C INSTRUCTIONS PROVIDED TO PT. COPIES OF LABS/XRAYS PROVIDED FOR HIS PCP
[2025-01-05 15:12] VITALS: BP 139/71; PULSE 61; RESP 17; TEMP 98; O2SAT 98
== END 2025-01-05 15:19 | disposition home or self-care (01) | DRG 206 ==
LOC: EDH 15:23 → EDHIP 19:04
PROVIDERS: ADMIT Internal Medicine; ATTEND Internal Medicine
DX: M94.0 Chondrocostal junction syndrome [Tietze] (principal); I25.110 Atherosclerotic heart disease of native coronary artery with unstable angina pectoris; N17.9 Acute kidney failure, unspecified; K21.9 Gastro-esophageal reflux disease without esophagitis; F02.80 Dementia in other diseases classified elsewhere, unspecified severity, without behavioral disturbance, psychotic disturbance, mood disturbance, and anxiety; F17.210 Nicotine dependence, cigarettes, uncomplicated; I10 Essential (primary) hypertension; G30.9 Alzheimer's disease, unspecified; E78.5 Hyperlipidemia, unspecified; Z82.49 Family history of ischemic heart disease and other diseases of the circulatory system; Z51.5 Encounter for palliative care; Z79.82 Long term (current) use of aspirin; Z85.528 Personal history of other malignant neoplasm of kidney; Z90.5 Acquired absence of kidney; Z95.5 Presence of coronary angioplasty implant and graft
CPT/HCPCS: 36415; 71045; 80048; 81003; 82550; 82570; 83735; 83880; 83935; 84100; 84300; 84484; 85025; 93005; 99285; G0378; J1644; J2270